=== PATIENT | male | born 1995 | race Caucasian/White ===

== ENCOUNTER 2017-09-13 09:54 | Day surgery (SDC) | payer OTHER ==
[~2017-09-13] VITALS: Ht 180.3 cm; Wt 83.9 kg
--- NOTE | 2017-09-13 11:12 | ED Abdominal Pain ---
General Chief Complaint: Abdominal/GI Problems Stated Complaint: ABD PAIN Nursing Triage Note: PT STATES BEING WOKE UP AT 0300 WITH RLQ PAIN, 2 LOOSE STOOLS AND NAUSEA. (SERINA PAINTER STUDENT) History of Present Illness Date Seen by Provider: Sep 13, 2017 Time Seen by Provider: 10:30 Initial Comments This is a 21 y.o male presenting to the ED with chief complaint of abdominal pain that had an acute onset at 0320 AM today. Pt states that the pain began across his lower abdomen, but now is contained in the RLQ. His pain has increased since this AM. Pt states that he had pain with walking and riding in the car. Pt admits to nausea, burning with urination, stomach pressure, and chills; Denies heartburn, vomiting, diarrhea, bloody stools, constipation. Last BM was this AM, pt states it was normal. Pt has not had any surgical procedures. (SERINA PAINTER STUDENT) Initial Comments I have seen and evaluated the patient with Marta and agree with above as stated. The patient does deny any need for pain medication at this time. He was informed that he will be getting a CT scan. (LUI GRAFF) Allergies and Home Medications Allergies Coded Allergies: No Known Drug Allergies (Unverified , 09/13/17) Home Medications Docusate Sodium 100 Mg Capsule, 100 MG PO DAILY Prescribed by: UMESH MG on 09/13/17 1639 Hydrocodone Bit/Acetaminophen 1 Tab Tab, 1 TAB PO Q4H PRN Prescribed by: UMESH MG on 09/13/17 1639 Patient Home Medication List Home Medication List Reviewed: Yes (SERINA PAINTER STUDENT) Review of Systems Constitutional: see HPI, chills; No dizziness, No fever EENTM: No Symptoms Reported Respiratory: No Symptoms Reported Cardiovascular: No Symptoms Reported Gastrointestinal: See HPI, Abdominal Pain; Denies Blood Streaked Stools, Denies Constipated, Denies Diarrhea; Nausea; Denies Rectal Bleeding; Vomiting Genitourinary: See HPI, Burning Musculoskeletal: no symptoms reported Skin: no symptoms reported Psychiatric/Neurological: No Symptoms Reported Endocrine: No Symptoms Reported Hematologic/Lymphatic: No Symptoms Reported (SERINA PAINTER STUDENT) Past Wiystwb-Nexmqj-Kqlhib Hx Patient Social History Alcohol Use: Occasionally Uses Alcohol Beverage of Choice: Beer Recreational Drug Use: No Smoking Status: Current Someday Smoker Type Used: Cigarettes Recent Foreign Travel: No Contact w/Someone Who Travel: No Recent Infectious Disease Expo: No Recent Hopitalizations: No (SERINA PAINTER [employer]) Seasonal Allergies Seasonal Allergies: No (SERINA PAINTER [employer]) Past Medical History Surgeries: No Respiratory: No Cardiac: No Neurological: No Genitourinary: No Gastrointestinal: No Musculoskeletal: No Endocrine: No HEENT: No Cancer: No Psychosocial: No Integumentary: No Blood Disorders: No (SERINA PAINTER [employer]) Physical Exam Vital Signs Vital Signs - First Documented 09/13/17 10:29 Temp 98.5 Pulse 85 Resp 18 B/P (MAP) 144/85 O2 Delivery Room Air (LUI GRAFF) Vital Signs Capillary Refill : (SERINA PAINTER [employer]) Height/Weight/BMI Height: 5'11.00" Weight: 185lbs. oz. 83.353938wd; 21.09 BMI Method:Stated General Appearance: WD/WN, no apparent distress Respiratory: chest non-tender, lungs clear, normal breath sounds, no respiratory distress, no accessory muscle use Cardiovascular: normal peripheral pulses, regular rate, rhythm, no edema, no gallop, no JVD, no murmur Gastrointestinal: normal bowel sounds, soft, no organomegaly, no pulsatile mass ; No guarding, No rebound; tenderness (Tenderness to palpation over the RLQ and suprapubic area, (-) rosving, (-) psoas, (+) obturator, (-) peritoneal signs) Extremities: normal range of motion Neurologic/Psychiatric: no motor/sensory deficits, alert, normal mood/affect, oriented x 3 Skin: normal color, warm/dry (SERINA PAINTER [employer]) Respiratory: chest non-tender, lungs clear Gastrointestinal: tenderness (Tenderness to palpation over the RLQ and suprapubic area, (-) rosving, (-) psoas, (+) obturator, (-) peritoneal signs) ( LUI GRAFF) Progress/Results/Core Measures Results/Orders Lab Results Laboratory Tests Test 09/13/17 11:00 09/13/17 13:20 Range/Units White Blood Count 18.1 H 4.3-11.0 10^3/uL Red Blood Count 5.18 4.35-5.85 10^6/uL Hemoglobin 15.3 13.3-17.7 G/DL Hematocrit 43 40-54 % Mean Corpuscular Volume 84 80-99 FL Mean Corpuscular Hemoglobin 30 25-34 PG Mean Corpuscular Hemoglobin Concent 35 32-36 G/DL Red Cell Distribution Width 12.4 10.0-14.5 % Platelet Count 269 130-400 10^3/uL Mean Platelet Volume 9.7 7.4-10.4 FL Neutrophils (%) (Auto) 91 H 42-75 % Lymphocytes (%) (Auto) 5 L 12-44 % Monocytes (%) (Auto) 4 0-12 % Eosinophils (%) (Auto) 0 0-10 % Basophils (%) (Auto) 0 0-10 % Neutrophils # (Auto) 16.4 H 1.8-7.8 X 10^3 Lymphocytes # (Auto) 0.9 L 1.0-4.0 X 10^3 Monocytes # (Auto) 0.8 0.0-1.0 X 10^3 Eosinophils # (Auto) 0.0 0.0-0.3 10^3/uL Basophils # (Auto) 0.0 0.0-0.1 10^3/uL Neutrophils % (Manual) 89 % Lymphocytes % (Manual) 4 % Monocytes % (Manual) 3 % Eosinophils % (Manual) 0 % Basophils % (Manual) 0 % Band Neutrophils 4 % Blood Morphology Comment NORMAL Sodium Level 137 135-145 MMOL/L Potassium Level 3.6 3.6-5.0 MMOL/L Chloride Level 104 98-107 MMOL/L Carbon Dioxide Level 24 21-32 MMOL/L Anion Gap 9 5-14 MMOL/L Blood Urea Nitrogen 8 7-18 MG/DL Creatinine 0.76 0.60-1.30 MG/DL Estimat Glomerular Filtration Rate > 60 BUN/Creatinine Ratio 11 Glucose Level 107 H 70-105 MG/DL Calcium Level 9.8 8.5-10.1 MG/DL Total Bilirubin 0.8 0.1-1.0 MG/DL Aspartate Amino Transf (AST/SGOT) 18 5-34 U/L Alanine Aminotransferase (ALT/SGPT) 29 0-55 U/L Alkaline Phosphatase 63 40-136 U/L Total Protein 7.9 6.4-8.2 GM/DL Albumin 4.8 H 3.2-4.5 GM/DL Urine Color YELLOW Urine Clarity CLEAR Urine pH 5 5-9 Urine Specific [place] 1.005 L 1.016-1.022 Urine Protein NEGATIVE NEGATIVE Urine Glucose (UA) NEGATIVE NEGATIVE Urine Ketones 3+ H NEGATIVE Urine Nitrite NEGATIVE NEGATIVE Urine Bilirubin NEGATIVE NEGATIVE Urine Urobilinogen NORMAL NORMAL MG/DL Urine Leukocyte Esterase NEGATIVE NEGATIVE Urine RBC (Auto) NEGATIVE NEGATIVE Urine RBC NONE /HPF Urine WBC RARE /HPF Urine Crystals NONE /LPF Urine Bacteria NEGATIVE /HPF Urine Casts NONE /LPF Urine Mucus NEGATIVE /LPF Urine Culture Indicated NO (LUI GRAFF) My Orders Orders - LUI GRAFF Saline Lock/Iv-Start (09/13/17 11:07) Ct Abdomen/Pelvis W (09/13/17 11:07) Ondansetron Injection (Zofran Injectio (09/13/17 11:15) Iohexol Injection (Omnipaque 350 Mg/Ml 1 (09/13/17 11:30) Ns (Ivpb) (Sodium Chloride 0.9%) (09/13/17 11:30) Contrast Received (Contrast Received) (09/13/17 11:30) Ns Iv 1000 Ml (Sodium Chloride 0.9%) (09/13/17 11:45) Ns Iv 1000 Ml (Sodium Chloride 0.9%) (09/13/17 11:34) Fentanyl Injection (Sublimaze Injection (09/13/17 13:15) Bupivacaine 0.5% Injection (Sensorcaine (09/13/17 13:27) Lidocaine 1% Inj 20 Ml (Xylocaine 1% Inj (09/13/17 13:27) Fentanyl Injection (Sublimaze Injection (09/13/17 14:30) Ondansetron Injection (Zofran Injectio (09/13/17 14:30) Piperacillin/Tazobactam (Zosyn Vial) (09/13/17 14:30) Lidocaine 2% Pf 5 Ml (Xylocaine 2% Pf) (09/13/17 14:28) (LUI GRAFF) Medications Given in ED (LUI GRAFF) Vital Signs/I&O 09/13/17 09/13/17 10:29 13:23 Temp 98.5 98.5 Pulse 85 Resp 18 B/P (MAP) 144/85 O2 Delivery Room Air (LUI GRAFF) Progress Progress Note : Time: 12:20 Progress Note I spoke to Dr. Mg at this time regarding the patient's CT findings of appendicitis. He states that he is in surgery now surgery now but he will take the patient to follow. I informed the patient of his diagnosis and need for surgery he agrees with plan of care. He does request pain medication at this time fentanyl and Zofran has been ordered at this time. (LUI GRAFF) Departure Communication (Admissions) Time/Spoke to Admitting Phy: 12:[address] Mg at this time. He agrees to take the patient to the OR. (LUI GRAFF) Impression Primary Impression: Appendicitis Disposition: 02 XFER SHT-TRM HOSP Condition: Stable/Unchanged Admissions Decision to Admit Reason: Admit from ER (Trauma) Decision to Admit/Date: Sep 13, 2017 Time/Decision to Admit Time: 14:23 (LUI GRAFF) Departure-Patient Inst. Referrals: NO,LOCAL PHYSICIAN (PCP/Family) Primary Care Physician Scripts Hydrocodone Bit/Acetaminophen (Hydrocodone/Acetaminophen 5/325mg Tablet) 1 Tab Tab 1 TAB PO Q4H PRN, #30 TAB 0 Refills Prov: UMESH MG DO 09/13/17 Docusate Sodium (Colace) 100 Mg Capsule 100 MG PO DAILY, #30 CAP Prov: UMESH MG DO 09/13/17 SERINA PAINTER MED STUDENT Sep 13, 2017 11:12 LUI GRAFF Sep 13, 2017 12:50
[2017-09-13 11:13] LABS: BASOPHILS % (AUTO) 0 % (0-10); EOSINOPHILS % (AUTO) 0 % (0-10); HEMATOCRIT 43 % (40-54); HEMOGLOBIN 15.3 G/DL (13.3-17.7); LYMPHOCYTES # (AUTO) 0.9 X 10^3 (1.0-4.0); LYMPHOCYTES % (AUTO) 5 % (12-44); MEAN CORPUSCULAR HEMOGLOBIN 30 PG (25-34); MEAN CORPUSCULAR HGB CONC 35 G/DL (32-36); MEAN CORPUSCULAR VOLUME 84 FL (80-99); MEAN PLATELET VOLUME 9.7 FL (7.4-10.4); MONOCYTES # (AUTO) 0.8 X 10^3 (0.0-1.0); MONOCYTES % (AUTO) 4 % (0-12); NEUTROPHILS # (AUTO) 16.4 X 10^3 (1.8-7.8); NEUTROPHILS % (AUTO) 91 % (42-75); PLATELET COUNT 269 10^3/uL (130-400); RED BLOOD COUNT 5.18 10^6/uL (4.35-5.85); RED CELL DISTRIBUTION WIDTH 12.4 % (10.0-14.5); WHITE BLOOD COUNT 18.1 10^3/uL (4.3-11.0)
[2017-09-13] MEDS ORDERED: ONDANSETRON 4 MG/2 ML (SDV) Z0FRAN IVP ONE ×2 (11:15→14:30)
[2017-09-13 11:28] LABS: ALANINE AMINOTRANSFERASE 29 U/L (0-55); ALBUMIN 4.8 GM/DL (3.2-4.5); ALKALINE PHOSPHATASE 63 U/L (40-136); BILIRUBIN,TOTAL 0.8 MG/DL (0.1-1.0); BUN/CREATININE RATIO 11; CALCIUM 9.8 MG/DL (8.5-10.1); CARBON DIOXIDE 24 MMOL/L (21-32); CHLORIDE 104 MMOL/L (98-107); CREATININE SERUM 0.76 MG/DL (0.60-1.30); GFR ESTIMATED > 60; GLUCOSE 107 MG/DL (70-105); POTASSIUM 3.6 MMOL/L (3.6-5.0); SODIUM 137 MMOL/L (135-145); TOTAL PROTEIN 7.9 GM/DL (6.4-8.2)
[2017-09-13] MEDS ORDERED: RECEIVED CONTRAST (Hold Metformin) IV SCH (11:30)
[2017-09-13] MEDS ORDERED: NS 250 ML (IVPB) BAG IV ONE (11:30)
[2017-09-13] MEDS ORDERED: IOHEXOL 350 MG/ML 100 ML (OMNIPAQUE 350) VIAL IV ONE (11:30)
[2017-09-13] MEDS ORDERED: NS IV 1000 ML 1,000 ML ONE (11:34)
[2017-09-13 11:45] LABS: BAND NEUTROPHILS 4 %; BASOPHILS % (MANUAL) 0 %; EOSINOPHILS % (MANUAL) 0 %; LYMPHOCYTES % (MANUAL) 4 %; MONOCYTES % (MANUAL) 3 %; NEUTROPHILS % (MANUAL) 89 %; RBC MORPH NORMAL
[2017-09-13] MEDS ORDERED: NS IV 1000 ML 1,000 ML IV SCH (11:45)
--- NOTE | 2017-09-13 12:14 | Diagnostic Imaging Report ---
PROCEDURE: CT abdomen and pelvis with contrast. TECHNIQUE: Multiple contiguous axial images were obtained through the abdomen and pelvis after administration of intravenous contrast. INDICATION: Right lower quadrant pain. No prior studies are available for comparison. The lung bases are clear. The liver and gallbladder are unremarkable. Pancreas and spleen are unremarkable. No adrenal mass is detected. Kidneys are unremarkable. Aorta is nonaneurysmal. Bowel loops are nondilated. The appendix is dilated up to 11 mm. There is an appendicolith in the proximal portion of the appendix. Only minimal surrounding inflammation is identified. No abscess formation is seen. There is no bowel obstruction. There is small amount of free fluid in the pelvis. The bladder is unremarkable. IMPRESSION: Dilated appendix which contains an appendicolith. There is mucosal enhancement and mild surrounding inflammation suggestive of acute appendicitis. No abscess formation or bowel obstruction is seen. Note is made of some free fluid in the pelvis. Dictated by: Dictated on workstation # [id number]
[2017-09-13] MEDS ORDERED: fentaNYL INJECTION 100 MCG/2 ML AMP IVP ONE ×2 (13:15→14:30)
[2017-09-13] MEDS ORDERED: LIDOCAINE 1% INJ 20 ML 20 ML VIAL ONE (13:27)
[2017-09-13] MEDS ORDERED: BUPIVACAINE 0.5% 30 ML (SENSORCAINE) VIAL ONE (13:27)
[2017-09-13 13:28] LABS: BILIRUBIN,URINE NEGATIVE (NEGATIVE); CLARITY,URINE CLEAR; COLOR,URINE YELLOW; GLUCOSE, URINE (UA) NEGATIVE (NEGATIVE); KETONES,URINE 3+ (NEGATIVE); LEUKOCYTE ESTERASE ,URINE NEGATIVE (NEGATIVE); NITRITE,URINE NEGATIVE (NEGATIVE); PH,URINE 5 (5-9); PROTEIN,URINE NEGATIVE (NEGATIVE); UROBILINOGEN,URINE NORMAL (NORMAL)
[2017-09-13 13:36] LABS: BACTERIA,URINE NEGATIVE /HPF; WBC,URINE RARE /HPF
[2017-09-13] MEDS ORDERED: LIDOCAINE PF 2% 5 ML (XYLOCAINE) VIAL ONE ×2 (14:28→14:47)
[2017-09-13] MEDS ORDERED: PIPERACILLIN/TAZOBACTAM 3.375 GM in D5W 100 ML IVPB 100 ML IV ONE (14:30)
[2017-09-13] MEDS ORDERED: ROCURONIUM 10 MG/ML 5 ML SYRINGE IV ONE (14:47)
[2017-09-13] MEDS ORDERED: ONDANSETRON 4 MG/2 ML (SDV) Z0FRAN ONE (14:47)
[2017-09-13] MEDS ORDERED: DEXAMETHASONE 10 MG/ML (DECADRON) 1 ML VIAL ONE (14:47)
[2017-09-13] MEDS ORDERED: proPOfol 200 MG/20 ML (DIPRIVAN) VIAL IV ONE (14:47)
[2017-09-13] MEDS ORDERED: fentaNYL INJECTION 100 MCG/2 ML AMP ONE ×2 (14:48→16:05)
[2017-09-13] MEDS ORDERED: MIDAZOLAM 2 MG/2 ML (VERSED) VIAL ONE (14:48)
[2017-09-13] MEDS: LACTATED RINGERS 1,000 ML IV PRN ×2 (14:55→16:00)
--- NOTE | 2017-09-13 14:57 | History & Physical-Surgical ---
History of Present Illness History of Present Illness Reason for visit/HPI seen and evaluated in ED. Asked To see for appendicitis by Blaine Rose Patient is a 21 year old male who woke up early this morning with lower abdominal pain. Then i migrated to right lower quadrant. Having sharp pain, no radiation. Movement makes worse. Has been nauseated no emesis. Nothing making better. Patient had ct scan that i reviewed demonstrating appendicolith and dilated distal appendix. WBC 18k Denies n/v fever sweats chills shortness of breath or chest pain. Date of Admission T Date Seen by Provider: Sep 13, 2017 Time Seen by Provider: 14:54 I consulted on this patient on 09/13/17 14:52 Attending Physician Umesh Mg DO Admitting Physician No,Local Physician Consult Allergies and Home Medications Allergies Coded Allergies: No Known Drug Allergies (Unverified , 09/13/17) Home Medications No Active Prescriptions or Reported Meds Patient Home Medication List Home Medication List Reviewed: Yes Past Lfdvfzz-Ipjazj-Jtuplc Hx Patient Social History Alcohol Use: Occasionally Uses Recreational Drug Use: No Smoking Status: Current Someday Smoker Type Used: Cigarettes Recent Foreign Travel: No Contact w/Someone Who Travel: No Recent Infectious Disease Expo: No Recent Hopitalizations: No Seasonal Allergies Seasonal Allergies: No Surgeries History of Surgeries: No Respiratory History of Respiratory Disorde: No Cardiovascular History of Cardiac Disorders: No Neurological History of Neurological Disord: No Genitourinary History of Genitourinary Disor: No Gastrointestinal History of Gastrointestinal Di: No Musculoskeletal History of Musculoskeletal Dis: No Endocrine History of Endocrine Disorders: No HEENT History of HEENT Disorders: No Cancer History of Cancer: No Psychosocial History of Psychiatric Problem: No Integumentary History of Skin or Integumenta: No Blood Transfusions History of Blood Disorders: No Family Medical History Significant Family History: No Pertinent Family Hx Constitutional: no symptoms reported EENTM: no symptoms reported Respiratory: no symptoms reported Cardiovascular: no symptoms reported Gastrointestinal: RLQ, nausea Genitourinary: no symptoms reported Musculoskeletal: no symptoms reported Skin: no symptoms reported Psychiatric/Neurological: No Symptoms Reported Physical Exam Vital Signs Vital Signs - First Documented 09/13/17 10:29 Temp 98.5 Pulse 85 Resp 18 B/P (MAP) 144/85 O2 Delivery Room Air Capillary Refill : Height, Weight, BMI Height: 5'11.00" Weight: 185lbs. oz. 83.438549uz; 21.09 BMI Method:Stated General Appearance: No Apparent Distress HEENT: PERRL/EOMI Neck: Supple Respiratory: No Accessory Muscle Use, No Respiratory Distress Cardiovascular: Regular Rate, Rhythm Gastrointestinal: Tenderness (right lower quadrant) Rectal: Deferred Back: Normal Inspection Extremity: Non Tender Neurologic/Psychiatric: Alert, Oriented x3, No Motor/Sensory Deficits Skin: Normal Color, Warm/Dry Lymphatic: No Adenopathy Data Review Labs Laboratory Tests 09/13/17 11:00: White Blood Count 18.1H, Red Blood Count 5.18, Hemoglobin 15.3, Hematocrit 43, Mean Corpuscular Volume 84, Mean Corpuscular Hemoglobin 30, Mean Corpuscular Hemoglobin Concent 35, Red Cell Distribution Width 12.4, Platelet Count 269, Mean Platelet Volume 9.7, Neutrophils (%) (Auto) 91H, Lymphocytes (%) (Auto) 5L , Monocytes (%) (Auto) 4, Eosinophils (%) (Auto) 0, Basophils (%) (Auto) 0, Neutrophils # (Auto) 16.4H, Lymphocytes # (Auto) 0.9L, Monocytes # (Auto) 0.8, Eosinophils # (Auto) 0.0, Basophils # (Auto) 0.0, Neutrophils % (Manual) 89, Lymphocytes % (Manual) 4, Monocytes % (Manual) 3, Eosinophils % (Manual) 0, Basophils % (Manual) 0, Band Neutrophils 4, Blood Morphology Comment NORMAL, Sodium Level 137, Potassium Level 3.6, Chloride Level 104, Carbon Dioxide Level 24, Anion Gap 9, Blood Urea Nitrogen 8, Creatinine 0.76, Estimat Glomerular Filtration Rate > 60, BUN/Creatinine Ratio 11, Glucose Level 107H, Calcium Level 9.8, Total Bilirubin 0.8, Aspartate Amino Transf (AST/SGOT) 18, Alanine Aminotransferase (ALT/SGPT) 29, Alkaline Phosphatase 63, Total Protein 7.9, Albumin 4.8H 09/13/17 13:20: Urine Color YELLOW, Urine Clarity CLEAR, Urine pH 5, Urine Specific [place] 1.005L, Urine Protein NEGATIVE, Urine Glucose (UA) NEGATIVE, Urine Ketones 3+H, Urine Nitrite NEGATIVE, Urine Bilirubin NEGATIVE, Urine Urobilinogen NORMAL, Urine Leukocyte Esterase NEGATIVE, Urine RBC (Auto) NEGATIVE, Urine RBC NONE, Urine WBC RARE, Urine Crystals NONE, Urine Bacteria NEGATIVE, Urine Casts NONE, Urine Mucus NEGATIVE, Urine Culture Indicated NO Assessment/Plan Assessment/Plan Admission Diagonsis rlq abdominal pain appendicits nausea Admission Status: Observation Assessment/Plan rlq abodminal pain nausea acute appendicitis discussed risks and benefits of laparoscopic appendectomy and understands risks and benefits and wishes to proceed Zosyn preop npo to OR UMESH MG DO Sep 13, 2017 14:57
[2017-09-13] MEDS ORDERED: SEVOFLURANE (ULTANE) 15 ML INHAL SOLN ONE (15:52)
[2017-09-13] MEDS ORDERED: MEPERIDINE (DEMEROL) INJ 50 MG/ML ONE (16:09)
[2017-09-13] MEDS ORDERED: morphine INJ 10 MG/ML 1ML (SYR OR VIAL) ONE (16:10)
[2017-09-13] MEDS ORDERED: ONDANSETRON 4 MG/2 ML (SDV) Z0FRAN IVP PRN (16:15)
[2017-09-13] MEDS: morphine INJ 10 MG/ML 1ML (SYR OR VIAL) IVP PRN ×2 (16:25→16:35)
--- NOTE | 2017-09-13 16:25 | Progress Note-Post Operative ---
Post-Operative Progess Note Surgeon (s)/Classification Inspector (s) Surgeon UMESH GAINES DO Classification Inspector: na Pre-Operative Diagnosis acute appendicitis Post-Operative Diagnosis same Procedure & Operative Findings Date of Procedure 09/13/17 Procedure Performed/Findings lap appy Anesthesia Type general Estimated Blood Loss Estimated blood loss (mL): min Specimens/Packing Specimens Removed appendix UMESH GAINES DO Sep 13, 2017 16:25
[2017-09-13] MEDS: MEPERIDINE (DEMEROL) INJ 50 MG/ML IVP PRN ×2 (16:30→16:45)
[2017-09-13] MEDS ORDERED: HYDROcodone/APAP 5 MG/325 MG (LORTAB) TAB PO PRN (16:30)
[2017-09-13] MEDS ORDERED: ACHD5005 PO (16:39)
[2017-09-13] MEDS ORDERED: DOCU-143 PO (16:39)
--- NOTE | 2017-09-13 16:43 | Discharge Inst-Simple/Standard ---
Discharge Inst-Standard Discharge Medications New, Converted or Re-Newed RX: RX on Chart Patient Instructions/Follow Up Plan of Care/Instructions/FU: Saurav 2 weeks. Activity as Tolerated: No Discharge Diet: Regular Diet Other Inst to Patient Follow up Appt: Make appointment for 2 week. Instructions: No lifting greater than 10 pounds. No strenuous activity. May shower in 24 hours, no tub bath or soaking. Use incentive spirometer at home as directed. No Smoking Skin/Wound Care: May remove bandages. You have special glue over incisions it will fall off on its own. Symptoms to Report: Appetite Changes, Extremity Discoloration, Numbness/Tingling, Swelling Increased , Bleeding Excessive, Eyesight Changes, Pain Increased, Urine Color Change, Constipation(Persistent), Fever over 101 degree F, Pain/Pressure in chest, Urinating Difficulty, Cough Up/Vomit Blood, Heart Beat Irreg/Pounding, Pain/ Pressure in jaw, Vaginal Bleeding Increase, Cramps in feet or legs, Lightheadedness, Pain/Pressure in shoulder, Diarrhea(Persistent), Memory Changes Suddenly, Questions/Concerns, Weight gain consecutive days, Dizziness/ Fainting, Nausea/Vomiting, Shortness of Breath, Weight gain over 2 pounds If questions or concerns contact your physician Or seek help at emergency department. UMESH GAINES DO Sep 13, 2017 16:42
[2017-09-13 17:12] VITALS: BP 141/69
[2017-09-13] MEDS: NS IV 1000 ML 1,000 ML IV SCH (17:26)
[2017-09-13] MEDS: morphine INJ 10 MG/ML 1ML (SYR OR VIAL) IV PRN ×3 (17:28→22:29)
[2017-09-13] MEDS: PIPERACILLIN/TAZOBACTAM 3.375 GM in D5W 100 ML IVPB 100 ML IV SCH (20:16)
[2017-09-13 20:59] VITALS: BP 130/65
--- NOTE | 2017-09-13 23:01 | OPERATIVE REPORT ---
DATE OF SERVICE: 09/13/2017 PREOPERATIVE DIAGNOSIS: Appendicitis. POSTOPERATIVE DIAGNOSIS: Appendicitis. PROCEDURE: Laparoscopic appendectomy. SURGEON: Vaibhav Mg DO. ANESTHESIA: General. ESTIMATED BLOOD LOSS: Minimal. COMPLICATIONS: None. INDICATIONS: The patient is a 21-year-old male who presented with lower abdominal pain that then migrated to the right lower quadrant. White count is 18,[address] scan is consistent with appendicitis with appendicolith. The patient was explained need for laparoscopic appendectomy. He understands risks and benefits and wished to proceed. Consent was signed on the chart. DESCRIPTION OF PROCEDURE: The patient was taken to the operating suite, was prepped and draped in sterile fashion. Surgical pause was performed. A 5 mm incision was made at the umbilicus. Kochers were used to dissect down the fascia, grasped and elevated. A Veress needle was inserted in the abdomen and pneumoperitoneum was partially performed. A 5 mm trocar was then placed and difficult visualization through the peritoneum due to the Veress needle was pulled back preperitoneal. A stab incision was made in the left upper quadrant. Veress needle was inserted. Pneumoperitoneum was achieved. Under direct visualization of the laparoscope, a 5 mm trocar was then placed. Under direct visualization of the laparoscope, a 5 mm trocar was then placed at the umbilicus and a 12 mm trocar was placed in left lower quadrant. Appendix was visualized. It was inflamed and dilated. It was grasped, elevated. A window was created at the base of the appendix. An Endo-LEONA 2.5 stapler was fired across the base of the appendix. Endo-ELONA 2.0 reload was then fired across the mesoappendix. It was placed in an Endobag and removed through the 12 mm trocar site. Abdomen was then irrigated with copious amounts of irrigation and suction. The 12 mm trocar was removed and the fascial defect was closed using 0 Vicryl with Endo Close. The air was then desufflated, the trocars were removed. A total of 20 mL of 0.5% Marcaine and 1% lidocaine 50:50 ratio was used to anesthetize the incisions. Skin was then closed using 4-0 Vicryl in subcuticular fashion. Abdomen was then washed and dried and Skin Affix was placed over the incisions. The patient tolerated the procedure well without any complications, taken to recovery room in stable condition. Job ID: [id number] DocumentID: [id number] Dictated Date: 09/13/2017 17:02:54 [employer] Station Attendant Date: 09/13/2017 23:00:37 Dictated By: DO YENI REYNOSO
[2017-09-13 23:56] VITALS: BP 130/69
[2017-09-14] MEDS: morphine INJ 10 MG/ML 1ML (SYR OR VIAL) IV PRN (01:50)
[2017-09-14] MEDS: NS IV 1000 ML 1,000 ML IV SCH (01:51)
[2017-09-14 04:30] VITALS: BP 126/72
[2017-09-14] MEDS: PIPERACILLIN/TAZOBACTAM 3.375 GM in D5W 100 ML IVPB 100 ML IV SCH (04:57)
[2017-09-14 08:02] VITALS: BP 133/68
[2017-09-14 09:40] VITALS: BP 133/68
--- NOTE | 2017-09-14 09:45 | Progress Note ---
Subjective Date Seen by Provider: Sep 14, 2017 Time Seen by Provider: 09:42 Subjective/Events-last exam doing well. feeling better. tolerating diet. pain controlled. using incentive spirometer. denies n/v fever sweats chills shortness of breath or chest pain. Objective Exam Vital Signs Date Time Temp Pulse Resp B/P (MAP) Pulse Ox O2 Delivery O2 Flow Rate FiO2 09/14/17 09:00 Room Air 09/14/17 08:02 98.6 47 18 133/68 (89) 97 Room Air 09/14/17 04:30 99.3 58 20 126/72 (90) 97 Room Air 09/13/17 23:56 97.1 71 15 130/69 (89) 98 Room Air 09/13/17 21:00 Room Air 09/13/17 20:59 99.3 61 18 130/65 (86) 98 Room Air 09/13/17 19:13 Room Air 09/13/17 17:39 Room Air 09/13/17 17:12 99.2 89 18 141/69 (93) 100 Room Air 09/13/17 14:40 98.5 85 18 99 Room Air 09/13/17 13:23 98.5 09/13/17 10:29 98.5 85 18 144/85 Room Air I & O 09/14/17 07:00 Intake Total 2200 ml Output Total 50 ml Balance 2150 ml Capillary Refill : General Appearance: No Apparent Distress HEENT: PERRL/EOMI Neck: Supple Respiratory: No Accessory Muscle Use, No Respiratory Distress Cardiovascular: Regular Rate, Rhythm Gastrointestinal: soft; No guarding, No rebound; tenderness (incisional tenderness) Extremity: Non Tender Neurologic/Psychiatric: Alert, Oriented x3, No Motor/Sensory Deficits Skin: Normal Color, Warm/Dry Lymphatic: No Adenopathy Results Lab Laboratory Tests 09/13/17 11:00: White Blood Count 18.1H, Red Blood Count 5.18, Hemoglobin 15.3, Hematocrit 43, Mean Corpuscular Volume 84, Mean Corpuscular Hemoglobin 30, Mean Corpuscular Hemoglobin Concent 35, Red Cell Distribution Width 12.4, Platelet Count 269, Mean Platelet Volume 9.7, Neutrophils (%) (Auto) 91H, Lymphocytes (%) (Auto) 5L , Monocytes (%) (Auto) 4, Eosinophils (%) (Auto) 0, Basophils (%) (Auto) 0, Neutrophils # (Auto) 16.4H, Lymphocytes # (Auto) 0.9L, Monocytes # (Auto) 0.8, Eosinophils # (Auto) 0.0, Basophils # (Auto) 0.0, Neutrophils % (Manual) 89, Lymphocytes % (Manual) 4, Monocytes % (Manual) 3, Eosinophils % (Manual) 0, Basophils % (Manual) 0, Band Neutrophils 4, Blood Morphology Comment NORMAL, Sodium Level 137, Potassium Level 3.6, Chloride Level 104, Carbon Dioxide Level 24, Anion Gap 9, Blood Urea Nitrogen 8, Creatinine 0.76, Estimat Glomerular Filtration Rate > 60, BUN/Creatinine Ratio 11, Glucose Level 107H, Calcium Level 9.8, Total Bilirubin 0.8, Aspartate Amino Transf (AST/SGOT) 18, Alanine Aminotransferase (ALT/SGPT) 29, Alkaline Phosphatase 63, Total Protein 7.9, Albumin 4.8H 09/13/17 13:20: Urine Color YELLOW, Urine Clarity CLEAR, Urine pH 5, Urine Specific [place] 1.005L, Urine Protein NEGATIVE, Urine Glucose (UA) NEGATIVE, Urine Ketones 3+H, Urine Nitrite NEGATIVE, Urine Bilirubin NEGATIVE, Urine Urobilinogen NORMAL, Urine Leukocyte Esterase NEGATIVE, Urine RBC (Auto) NEGATIVE, Urine RBC NONE, Urine WBC RARE, Urine Crystals NONE, Urine Bacteria NEGATIVE, Urine Casts NONE, Urine Mucus NEGATIVE, Urine Culture Indicated NO Assessment/Plan Assessment/Plan Assessment/Plan rlq abodminal pain nausea acute appendicitis s/p lap appy doing well. okay to ct home Final Diagnosis rlq abdominal pain, nausea, appendicitis, s/p laparoscopic appendectomy Clinical Quality Measures DVT/VTE Risk/Contraindication: Risk Factor Score Per Nursin RFS Level Per Nursing on Admit: 1=Low/No VTE PPX UMESH GAINES DO Sep 14, 2017 09:45
--- NOTE | 2017-09-14 11:39 | Anesthesia-General Post-Op ---
General Patient Condition Mental Status/LOC: Same as Preop Cardiovascular: Satisfactory Nausea/Vomiting: Absent Respiratory: Satisfactory Pain: Controlled Complications: Absent Post Op Complications Complications None Follow Up Care/Instructions Patient Instructions None needed. Anesthesia/Patient Condition Patient Condition Patient is doing well, no complaints, stable vital signs, no apparent adverse anesthesia problems. No complications reported per nursing. COSTA CABA CRNA Sep 14, 2017 11:39
== END 2017-09-14 09:40 | disposition home or self-care (01) ==
LOC: EDSEX 09:57 → ER 09:57 → 4TH 14:33 → SDC 14:33 → UNDOADMOB 17:17 → 4TH 17:17 → UNDODISOB 09-14 09:40 → SDC 09-14 09:40
PROVIDERS: ATTEND Surgery
DX: K35.80 Unspecified acute appendicitis (principal)
CPT/HCPCS: 36415; 74177; 80053; 81000; 85007; 85027; 94664; 96361; 96374; 96375; 96376